=== PATIENT | male | born 1940 | race Caucasian/White ===

== ENCOUNTER 2017-04-17 13:20 | Emergency (ER) | payer BC ==
[~2017-04-17] VITALS: Ht 180.3 cm; Wt 85.0 kg
[2017-04-17 13:22] VITALS: BP 192/90; PULSE 93; RESP 16; TEMP 98; O2SAT 99
[2017-04-17] MEDS ORDERED: LUMI0.01 EACH EYE (13:44)
[2017-04-17] MEDS ORDERED: COMB0.2S EACH EYE (13:44)
[2017-04-17] MEDS ORDERED: QUIN5TAB6 PO (13:44)
[2017-04-17] MEDS ORDERED: METF500T PO (13:44)
[2017-04-17] MEDS ORDERED: GLIM1TAB PO (13:44)
[2017-04-17] MEDS ORDERED: TETANUS/DIPHTHERIA TOXOID ADULT 0.5 ML VIAL IM ONE (14:30)
--- NOTE | 2017-04-17 14:52 | PD ---
HPI . Fall/head injury Chief Complaint: Fall Time Seen by Provider: 13:38 Travel History International Travel<30 days: No Contact w/Intl Traveler<30days: No Traveled to known affect area: No History of Present Illness HPI 76-year-old male patient presents emergency department for evaluation after bending down at home and losing his balance and falling forward. The patient fell forward he hit the left lateral aspect of the top of his head on a stone wall. Patient denies any loss of consciousness. Patient is on a baby aspirin a day. Patient has approximately a 6 cm laceration to the left lateral aspect of his skull. The laceration starts at the hairline and extends posteriorly to the top of the skull. Patient is neurologically intact. The patient also abraded his left elbow during the fall. Patient has a swelling of his left elbow proximal to the abrasion but the patient states that he has had that swelling for years and it does not affect his range of motion. Patient has any chest pain, shortness breath, nausea, vomiting, diarrhea. Patient is unsure of his tetanus is up-to-date. PFSH Past Medical History High Cholesterol: Yes Diabetes: Yes Patient Takes Glucophage: Yes Glaucoma: Yes Hypertension: Yes Tetanus Vaccination: > 5 Years Influenza Vaccination: No Past Surgical History Eye Surgery: Yes (cataracts; glaucoma) Social History Alcohol Use: No Tobacco Use: No Substance Use: No Allergies-Medications (Allergen,Severity, Reaction): Uncoded Allergies: antibiotic (Allergy, Unknown, 04/17/17) Reported Meds & Prescriptions Reported Meds & Active Scripts Active Reported Combigan Opth Drops (Brimonidine-Timolol Opth Drops) 0.2-0.5% Soln 1 Drop EACH EYE Q12HR Lumigan Opth Drops (Bimatoprost) 0.01% Soln 1 Drop EACH EYE HS Quinapril (Quinapril HCl) 5 Mg Tab 5 Mg PO BID Metformin (Metformin HCl) 500 Mg Tab 500 Mg PO BIDPC Glimepiride 1 Mg Tab 1 Mg PO DAILY Take with breakfast or first main meal Review of Systems Except as stated in HPI: all other systems reviewed are Neg Physical Exam Narrative GENERAL: Well-nourished, well-developed 76-year-old male patient in no acute distress. Nontoxic appearing. SKIN: 6 cm laceration to the left lateral aspect of the skull starting at the hairline extending posteriorly towards the occipital portion of the skull. Abrasion to the left elbow. HEAD: Normocephalic. See above skin for noted trauma to the head. No other hematomas or abrasions noted. EYES: No scleral icterus. No injection or drainage. NECK: Supple, trachea midline. No JVD or lymphadenopathy. CARDIOVASCULAR: Regular rate and rhythm without murmurs, gallops, or rubs. RESPIRATORY: Breath sounds equal bilaterally. No accessory muscle use. GASTROINTESTINAL: Abdomen soft, non-tender, nondistended. MUSCULOSKELETAL: Full range of motion noted in all extremities. No obvious deformity, ecchymosis, erythema, cyanosis, or edema. BACK: Nontender without obvious deformity. Full range of motion noted in neck with rotation and extension and flexion. No CVA tenderness. Data Data Last Documented VS Vital Signs Date Time Temp Pulse Resp B/P (MAP) Pulse Ox O2 Delivery O2 Flow Rate FiO2 04/17/17 16:15 78 18 160/77 (104) 99 Room Air 161/77 (105) 04/17/17 13:22 98.0 Orders Orders Tetanus/Diphtheria Tox Adult (Tetanus/Di (04/17/17 14:30) Ct Brain W/O Iv Contrast(Rout) (04/17/17 14:24) Electrocardiogram (04/17/17 14:52) Basic Metabolic Panel (Bmp) (04/17/17 14:52) Ckmb (Isoenzyme) Profile (04/17/17 14:52) Complete Blood Count With Diff (04/17/17 14:52) Magnesium (Mg) (04/17/17 14:52) Prothrombin Time / Inr (Pt) (04/17/17 14:52) Act Partial Throm Time (Ptt) (04/17/17 14:52) Troponin I (04/17/17 14:52) Chest, Single Ap (04/17/17 14:52) Ecg Monitoring (04/17/17 14:52) Bilateral Bp Monitoring (04/17/17 14:52) Iv Access Insert/Monitor (04/17/17 14:52) Oximetry (04/17/17 14:52) Oxygen Administration (04/17/17 14:52) Sodium Chloride 0.9% Flush (Ns Flush) (04/17/17 15:00) Lidocaine 1% Inj (50 Ml) (Xylocaine 1% I (04/17/17 16:15) CKMB (04/17/17 15:55) CKMB% (04/17/17 15:55) Labs Laboratory Tests Test 04/17/17 15:55 White Blood Count 12.1 TH/MM3 Red Blood Count 4.04 MIL/MM3 Hemoglobin 13.0 GM/DL Hematocrit 38.3 % Mean Corpuscular Volume 94.6 FL Mean Corpuscular Hemoglobin 32.0 PG Mean Corpuscular Hemoglobin Concent 33.8 % Red Cell Distribution Width 14.6 % Platelet Count 254 TH/MM3 Mean Platelet Volume 9.1 FL Neutrophils (%) (Auto) 69.9 % Lymphocytes (%) (Auto) 18.0 % Monocytes (%) (Auto) 10.2 % Eosinophils (%) (Auto) 1.1 % Basophils (%) (Auto) 0.8 % Neutrophils # (Auto) 8.4 TH/MM3 Lymphocytes # (Auto) 2.2 TH/MM3 Monocytes # (Auto) 1.2 TH/MM3 Eosinophils # (Auto) 0.1 TH/MM3 Basophils # (Auto) 0.1 TH/MM3 CBC Comment DIFF FINAL Differential Comment Prothrombin Time 11.3 SEC Prothromb Time International Ratio 1.0 RATIO Activated Partial Thromboplast Time 23.9 SEC Blood Urea Nitrogen 28 MG/DL Creatinine 1.29 MG/DL Random Glucose 88 MG/DL Calcium Level 8.9 MG/DL Magnesium Level 1.6 MG/DL Sodium Level 139 MEQ/L Potassium Level 4.0 MEQ/L Chloride Level 105 MEQ/L Carbon Dioxide Level 24.7 MEQ/L Anion Gap 9 MEQ/L Estimat Glomerular Filtration Rate 54 ML/MIN Total Creatine Kinase 122 U/L Creatine Kinase MB 2.3 NG/ML Troponin I LESS THAN 0.02 NG/ML MDM Medical Decision Making Medical Screen Exam Complete: Yes Emergency Medical Condition: Yes Differential Diagnosis Differential diagnoses include but not limited to ICH, concussion, laceration, abrasion, wound, fall, ACS, electrolyte abnormality, vertigo Narrative Course 76-year-old male patient presents emergency department for evaluation after falling forward when he bent down and lost his balance. Patient states that he usually gets dizzy when he leans forward. Patient is on blood pressure medication and correlates the dizziness is blood pressure medication. Due to the patient's age and complaint of dizziness/fall a workup to evaluate cardiac function electrolyte status was initiated. CT of the head was ordered. Laceration was repaired with edmond. Please see my procedural narrative. EKG shows sinus rhythm with heart rate 78. No electrolyte abnormalities noted. CT shows no acute intercranial abnormality. Patient is discharged home with instructions to keep wound clean and dry and get the edmond removed in 10-14 days. Laboratory Tests Test 04/17/17 15:55 White Blood Count 12.1 TH/MM3 Red Blood Count 4.04 MIL/MM3 Hemoglobin 13.0 GM/DL Hematocrit 38.3 % Mean Corpuscular Volume 94.6 FL Mean Corpuscular Hemoglobin 32.0 PG Mean Corpuscular Hemoglobin Concent 33.8 % Red Cell Distribution Width 14.6 % Platelet Count 254 TH/MM3 Mean Platelet Volume 9.1 FL Neutrophils (%) (Auto) 69.9 % Lymphocytes (%) (Auto) 18.0 % Monocytes (%) (Auto) 10.2 % Eosinophils (%) (Auto) 1.1 % Basophils (%) (Auto) 0.8 % Neutrophils # (Auto) 8.4 TH/MM3 Lymphocytes # (Auto) 2.2 TH/MM3 Monocytes # (Auto) 1.2 TH/MM3 Eosinophils # (Auto) 0.1 TH/MM3 Basophils # (Auto) 0.1 TH/MM3 CBC Comment DIFF FINAL Differential Comment Prothrombin Time 11.3 SEC Prothromb Time International Ratio 1.0 RATIO Activated Partial Thromboplast Time 23.9 SEC Blood Urea Nitrogen 28 MG/DL Creatinine 1.29 MG/DL Random Glucose 88 MG/DL Calcium Level 8.9 MG/DL Magnesium Level 1.6 MG/DL Sodium Level 139 MEQ/L Potassium Level 4.0 MEQ/L Chloride Level 105 MEQ/L Carbon Dioxide Level 24.7 MEQ/L Anion Gap 9 MEQ/L Estimat Glomerular Filtration Rate 54 ML/MIN Total Creatine Kinase 122 U/L Creatine Kinase MB 2.3 NG/ML Troponin I LESS THAN 0.02 NG/ML Last Impressions Chest X-Ray 04/17/17 1452 Signed Impressions: Service Date/Time: Monday, April 17, 2017 15:00 - CONCLUSION: 1. Minimal linear atelectatic changes laterally in the left base. No confluent infiltrate. 2. Mild levoscoliosis of the dorsal spine associated mild degenerative changes. No fracture. Ludin Parrish MD Head CT 04/17/17 1424 Signed Impressions: Service Date/Time: Monday, April 17, 2017 15:40 - CONCLUSION: Left frontal scalp soft tissue swelling and laceration. However, no fracture or acute intracranial abnormality is identified. Brian Hardy MD Diagnosis Primary Impression: Fall Qualified Codes: W19.XXXA - Unspecified fall, initial encounter Additional Impression: Laceration of scalp Qualified Codes: S01.01XA - Laceration without foreign body of scalp, initial encounter Referrals: Primary Care Physician Patient Instructions: Fall Prevention for Older Adults (DC), General Instructions, Laceration (ED), Staple Care (ED) Additional Instructions: Please return to emergency department if your symptoms return or worsen. Follow up with your primary care provider. Get edmond removed in 10-14 days. Keep wound clean and dry. May take shower and wash her just past the wound dry afterwards. May apply antibiotic ointment to area. May take [id number] ibuprofen or Tylenol as needed for pain or fevers. May use ice pack to area to alleviate swelling. Med/Other Pt SpecificInfo: Wound Care Disposition: 01 DISCHARGE HOME Condition: Stable AmadouChantell Nicole RUIZ Apr 17, 2017 14:52
[2017-04-17] MEDS ORDERED: SODIUM CHLORIDE 0.9% FLUSH 10 ML FLUSH IVF PRN (15:00)
--- NOTE | 2017-04-17 15:48 | RADRPT ---
EXAM DATE/TIME: 04/17/2017 15:00 [facility] COMPARISON: No previous studies available for comparison. INDICATIONS : Fell today. Chest pain. MEDICAL HISTORY : Hypertension. Diabetes mellitus type II. SURGICAL HISTORY : None. ENCOUNTER: Initial ACUITY: 1 day PAIN SCORE: 10 LOCATION: Right lower chest FINDINGS: A single view of the chest demonstrates the lungs to be symmetrically aerated with minimal linear ate lectatic changes laterally above the left hemidiaphragm. Lungs are otherwise clear. Heart size is nor mal. Levoscoliosis of the dorsal spine with associated mild degenerative changes. Osseous structures are otherwise intact. CONCLUSION: 1. Minimal linear atelectatic changes laterally in the left base. No confluent infiltrate. 2. Mild levoscoliosis of the dorsal spine associated mild degenerative changes. No fracture. Ludin Parrish MD on April 17, 2017 at 15:45 Board Certified Radiologist. This report was verified electronically.
[2017-04-17 16:14] VITALS: BP 160/77; PULSE 78; RESP 18; O2SAT 99
--- NOTE | 2017-04-17 16:14 | RADRPT ---
EXAM DATE/TIME: 04/17/2017 15:40 [facility] COMPARISON: No previous studies available for comparison. INDICATIONS : Fell hitting his head on a stone wall. LOC. RADIATION DOSE: 32.94 CTDIvol (mGy) MEDICAL HISTORY : Hypertension. Diabetes SURGICAL HISTORY : ENCOUNTER: Initial ACUITY: 1 day PAIN SCALE: 8/10 LOCATION: frontal head TECHNIQUE: Multiple contiguous axial images were obtained of the head. Using automated exposure control and adj ustment of the mA and/or kV according to patient size, radiation dose was kept as low as reasonably a chievable to obtain optimal diagnostic quality images. DICOM format image data is available electro nically for review and comparison. FINDINGS: CEREBRUM: There is mild generalized atrophy. Ventricles are normal in size given the degree of atrophy. No mid line shift, mass lesion, hemorrhage or acute infarction. No extra-axial fluid collections are seen. POSTERIOR FOSSA: The cerebellum and brainstem demonstrate no acute finding. The 4th ventricle is midline. The cerebe llopontine angle is unremarkable. EXTRACRANIAL: The visualized sinuses are clear. There is a left frontal scalp soft tissue swelling and laceration. SKULL: The calvaria is intact. No evidence of skull fracture. CONCLUSION: Left frontal scalp soft tissue swelling and laceration. However, no fracture or acute intracranial ab normality is identified. Brian Hardy MD on April 17, 2017 at 16:09 Board Certified Radiologist. This report was verified electronically.
[2017-04-17 16:15] VITALS: BP_SYST 160; BP_SYST 161; BP_DIAS 77; PULSE 78; RESP 18; O2SAT 99
[2017-04-17] MEDS ORDERED: LIDOCAINE HCL 1% 50 ML VIAL INFIL ONE (16:15)
[2017-04-17 16:16] LABS: AUTOMATED NEUTROPHIL # 8.4 TH/MM3 (1.8-7.7); BASOPHIL # 0.1 TH/MM3 (0-0.2); BASOPHIL % 0.8 % (0.0-2.0); EOSINOPHIL # 0.1 TH/MM3 (0-0.4); EOSINOPHIL % 1.1 % (0.0-4.0); HEMATOCRIT 38.3 % (39.0-51.0); HEMO FLAGS DIFF FINAL; LYMPHOCYTE # 2.2 TH/MM3 (1.0-4.8); MEAN CELL VOLUME 94.6 FL (80.0-100.0); MEAN CORPUSCULAR HGB CONC 33.8 % (32.0-36.0); MONO % 10.2 % (0.0-8.0); NEUT % 69.9 % (16.0-70.0); PLATELET COUNT 254 TH/MM3 (150-450); RED BLOOD COUNT 4.04 MIL/MM3 (4.50-5.90); RED CELL DISTRIBUTION WIDTH 14.6 % (11.6-17.2); WHITE BLOOD COUNT 12.1 TH/MM3 (4.0-11.0)
[2017-04-17 16:23] LABS: APTT (PATIENT) 23.9 SEC (24.3-30.1); PROTHROMBIN TIME - PATIENT 11.3 SEC (9.8-11.6)
[2017-04-17 16:25] LABS: ANION GAP 9 MEQ/L (5-15); BICARBONATE 24.7 MEQ/L (21.0-32.0); BLOOD UREA NITROGEN 28 MG/DL (7-18); CHLORIDE 105 MEQ/L (98-107); GLOMERULAR FILTRATION RATE 54 ML/MIN (>89); MAGNESIUM 1.6 MG/DL (1.5-2.5); SODIUM (NA) 139 MEQ/L (136-145)
[2017-04-17 16:27] LABS: CREATINE KINASE 122 U/L (39-308)
[2017-04-17 16:39] LABS: CKMB 2.3 NG/ML (0.5-3.6)
--- NOTE | 2017-04-18 19:04 | EKG ---
Date Performed: 04/17/2017 Time Performed: 16:11:45 PTAGE: 76 years EKG: Sinus rhythm MARKED LEFT AXIS DEVIATION PATTERN CONSISTENT WITH PULMONARY DISEASE MODERATE VOLTAGE CRITERIA FOR L VH, CONSIDER NORMAL VARIANT ABNORMAL ECG NO PREVIOUS TRACING DOCTOR: Jake Kovacs Interpretating Date/Time 04/18/2017 19:03:29
== END 2017-04-17 17:45 | disposition home or self-care (01) ==
LOC: NEPD 13:20
DX: S01.01XA Laceration without foreign body of scalp, initial encounter (principal); S50.312A Abrasion of left elbow, initial encounter; E11.9 Type 2 diabetes mellitus without complications; I10 Essential (primary) hypertension; R94.31 Abnormal electrocardiogram [ECG] [EKG]; R07.9 Chest pain, unspecified; W01.0XXA Fall on same level from slipping, tripping and stumbling without subsequent striking against object, initial encounter; Z23 Encounter for immunization; Z79.84 Long term (current) use of oral hypoglycemic drugs; Z79.899 Other long term (current) drug therapy
CPT/HCPCS: 12002; 70450; 71010; 80048; 82550; 82552; 83735; 84484; 85025; 85610; 85730; 90471; 90714; 93005

== ENCOUNTER 2017-04-22 07:19 | Emergency (ER) | payer BC ==
[~2017-04-22] VITALS: Ht 180.3 cm; Wt 85.0 kg
[~2017-04-22 07:19] MED LIST: COMB0.2S EACH EYE; GLIM1TAB PO; LUMI0.01 EACH EYE; METF500T PO; QUIN5TAB6 PO
[2017-04-22 07:29] VITALS: BP 160/72; PULSE 98; RESP 18; O2SAT 98
[2017-04-22] MEDS ORDERED: cholesterol med (07:40)
[2017-04-22] MEDS ORDERED: AZOP1SUS EACH EYE (07:40)
--- NOTE | 2017-04-22 07:54 | PD ---
HPI Chief Complaint: Neuro Symptoms/ Deficits Time Seen by Provider: 07:42 Travel History International Travel<30 days: No Contact w/Intl Traveler<30days: No Traveled to known affect area: No History of Present Illness HPI Patient is a 76-year-old male presents emergency department after an episode of apparent delirium in the middle the night last night. He is also had one a few nights ago. Apparently this is happened several times since he had a fall a few days ago requiring stitches here. When he had edmond placed feels that a CAT scan was had basic lab work all which was reassuring. Patient states he feels fine now. He is coming by his ex- and his daughter who states the symptoms last for about 30 minutes he was combative moving all 4 extremities and had no obvious facial deformity. They're concerned because with the history of the head injury that he might of had a stroke. The patient has not had any fevers dysuria abdominal pain chest pain shortness of breath. He does complain of some mild neck pain. PFSH Past Medical History High Cholesterol: Yes Diabetes: Yes Patient Takes Glucophage: No Glaucoma: Yes Hypertension: Yes Medical other: Yes (CKD) Past Surgical History Eye Surgery: Yes (cataracts; glaucoma) Tonsillectomy: Yes Social History Alcohol Use: No Tobacco Use: No Substance Use: No Allergies-Medications (Allergen,Severity, Reaction): Coded Allergies: Sulfa (Sulfonamide Antibiotics) (Verified Allergy, Unknown, 04/22/17) Uncoded Allergies: antibiotic (Allergy, Unknown, 04/17/17) Reported Meds & Prescriptions Reported Meds & Active Scripts Active Reported [cholesterol med ] Azopt Opth Drops (Brinzolamide) 1% Susp 1 Drop EACH EYE TID Combigan Opth Drops (Brimonidine-Timolol Opth Drops) 0.2-0.5% Soln 1 Drop EACH EYE Q12HR Lumigan Opth Drops (Bimatoprost) 0.01% Soln 1 Drop EACH EYE HS Quinapril (Quinapril HCl) 5 Mg Tab 5 Mg PO BID Metformin (Metformin HCl) 500 Mg Tab 500 Mg PO BIDPC Review of Systems Except as stated in HPI: all other systems reviewed are Neg Physical Exam Narrative GENERAL: Well-developed well-nourished in no obvious distress SKIN: Focused skin assessment warm/dry. HEAD: Atraumatic. Normocephalic. EYES: Pupils equal and round. No scleral icterus. No injection or drainage. ENT: No nasal bleeding or discharge. Mucous membranes pink and moist. NECK: Trachea midline. No JVD. CARDIOVASCULAR: Regular rate and rhythm. No murmur appreciated. RESPIRATORY: No accessory muscle use. Clear to auscultation. Breath sounds equal bilaterally. GASTROINTESTINAL: Abdomen soft, non-tender, nondistended. Hepatic and splenic margins not palpable. MUSCULOSKELETAL: No obvious deformities. No clubbing. No cyanosis. No edema. NEUROLOGICAL: Awake and alert. No obvious cranial nerve deficits. Motor grossly within normal limits. Normal speech. PSYCHIATRIC: Appropriate mood and affect; insight and judgment normal. Data Data Last Documented VS Vital Signs Date Time Temp Pulse Resp B/P (MAP) Pulse Ox O2 Delivery O2 Flow Rate FiO2 04/22/17 13:20 (80) 04/22/17 11:27 97.6 83 18 99 Room Air Orders Orders Electrocardiogram (04/22/17 07:51) Complete Blood Count With Diff (04/22/17 07:51) Comprehensive Metabolic Panel (04/22/17 07:51) Prothrombin Time / Inr (Pt) (04/22/17 07:51) Act Partial Throm Time (Ptt) (04/22/17 07:51) Thyroid Stimulating Hormone (04/22/17 07:51) Urinalysis - C+S If Indicated (04/22/17 07:51) Ct Brain W/O Iv Contrast(Rout) (04/22/17 07:51) Blood Glucose (04/22/17 07:51) Ecg Monitoring (04/22/17 07:51) Iv Access Insert/Monitor (04/22/17 07:51) Oximetry (04/22/17 07:51) Sodium Chloride 0.9% Flush (Ns Flush) (04/22/17 08:00) Ct Cerv Spine W/O Contrast (04/22/17 ) Bedside Glucose GENOVEVA.CSUGAR (04/22/17 11:09) Ed Discharge Order (04/22/17 13:09) Labs Laboratory Tests Test 04/22/17 08:00 04/22/17 10:30 White Blood Count 16.1 TH/MM3 Red Blood Count 4.47 MIL/MM3 Hemoglobin 14.0 GM/DL Hematocrit 42.5 % Mean Corpuscular Volume 95.0 FL Mean Corpuscular Hemoglobin 31.2 PG Mean Corpuscular Hemoglobin Concent 32.9 % Red Cell Distribution Width 14.2 % Platelet Count 361 TH/MM3 Mean Platelet Volume 9.2 FL Neutrophils (%) (Auto) 73.4 % Lymphocytes (%) (Auto) 14.2 % Monocytes (%) (Auto) 10.2 % Eosinophils (%) (Auto) 1.7 % Basophils (%) (Auto) 0.5 % Neutrophils # (Auto) 11.8 TH/MM3 Lymphocytes # (Auto) 2.3 TH/MM3 Monocytes # (Auto) 1.6 TH/MM3 Eosinophils # (Auto) 0.3 TH/MM3 Basophils # (Auto) 0.1 TH/MM3 CBC Comment DIFF FINAL Differential Comment Prothrombin Time 10.5 SEC Prothromb Time International Ratio 1.0 RATIO Activated Partial Thromboplast Time 26.7 SEC Blood Urea Nitrogen 31 MG/DL Creatinine 1.37 MG/DL Random Glucose 47 MG/DL Total Protein 8.5 GM/DL Albumin 3.9 GM/DL Calcium Level 9.2 MG/DL Alkaline Phosphatase 125 U/L Aspartate Amino Transf (AST/SGOT) 18 U/L Alanine Aminotransferase (ALT/SGPT) 18 U/L Total Bilirubin 0.6 MG/DL Sodium Level 137 MEQ/L Potassium Level 4.0 MEQ/L Chloride Level 101 MEQ/L Carbon Dioxide Level 26.5 MEQ/L Anion Gap 10 MEQ/L Estimat Glomerular Filtration Rate 51 ML/MIN Thyroid Stimulating Hormone 3rd Gen 1.160 uIU/ML Urine Color YELLOW Urine Turbidity CLEAR Urine pH 5.0 Urine Specific [place] 1.014 Urine Protein NEG mg/dL Urine Glucose (UA) NEG mg/dL Urine Ketones NEG mg/dL Urine Occult Blood NEG Urine Nitrite NEG Urine Bilirubin NEG Urine Urobilinogen LESS THAN 2.0 MG/DL Urine Leukocyte Esterase NEG Urine RBC 0-1 /hpf Urine WBC 0-2 /hpf Urine Squamous Epithelial Cells 0-5 /hpf Microscopic Urinalysis Comment CATH-CULT NOT IND MDM Medical Decision Making Medical Screen Exam Complete: Yes Emergency Medical Condition: Yes Differential Diagnosis Hypoglycemia, acute stroke unlikely, subacute intracranial hemorrhage, concussion. Narrative Course Patient roomed in emergency department, found to be hypoglycemic tolerated oral glucose load. Was observed in the emergency department 6 hours well workup was completed including CT head and neck C-spine basic labs. All of which were reassuring. Patient was offered admission for hypoglycemia while on oral hypoglycemics but he would rather go home. I think is reasonable discussed he needs to discontinue his glimepiride until he discussed with his regular physician as this is clearly causing his blood sugar to go to low and likely the cause of his delirium in the middle the night. Discussed with his ex- and his daughter who accompany him. He is stable for discharge. Diagnosis Primary Impression: Delirium due to another medical condition Additional Impression: Hypoglycemia Med/Other Pt SpecificInfo: Prescription(s) given Disposition: 01 DISCHARGE HOME Condition: Stable Hector Lewis MD Apr 22, 2017 07:53
[2017-04-22] MEDS ORDERED: SODIUM CHLORIDE 0.9% FLUSH 5 ML FLUSH IV FLUSH PRN (08:00)
[2017-04-22 08:07] VITALS: BP 137/64; PULSE 87; RESP 18; O2SAT 99
[2017-04-22 08:31] LABS: AUTOMATED NEUTROPHIL # 11.8 TH/MM3 (1.8-7.7); BASOPHIL # 0.1 TH/MM3 (0-0.2); BASOPHIL % 0.5 % (0.0-2.0); EOSINOPHIL # 0.3 TH/MM3 (0-0.4); EOSINOPHIL % 1.7 % (0.0-4.0); HEMATOCRIT 42.5 % (39.0-51.0); HEMO FLAGS DIFF FINAL; LYMPH % 14.2 % (9.0-44.0); LYMPHOCYTE # 2.3 TH/MM3 (1.0-4.8); MEAN CORPUSCULAR HEMOGLOBIN 31.2 PG (27.0-34.0); MEAN CORPUSCULAR HGB CONC 32.9 % (32.0-36.0); MONO % 10.2 % (0.0-8.0); NEUT % 73.4 % (16.0-70.0); PLATELET COUNT 361 TH/MM3 (150-450); RED BLOOD COUNT 4.47 MIL/MM3 (4.50-5.90); RED CELL DISTRIBUTION WIDTH 14.2 % (11.6-17.2); WHITE BLOOD COUNT 16.1 TH/MM3 (4.0-11.0)
[2017-04-22 08:41] LABS: APTT (PATIENT) 26.7 SEC (24.3-30.1); PROTHROMBIN TIME - PATIENT 10.5 SEC (9.8-11.6)
--- NOTE | 2017-04-22 08:53 | RADRPT ---
EXAM DATE/TIME: 04/22/2017 08:34 [facility] COMPARISON: No previous studies available for comparison. INDICATIONS : Altered mental status, recent fall. RADIATION DOSE: 56.35 CTDIvol (mGy) MEDICAL HISTORY : Hypertension. Renal failure, chronic. SURGICAL HISTORY : Tonsillectomy. ENCOUNTER: Initial ACUITY: 1 day PAIN SCALE: Non-responsive LOCATION: cranial TECHNIQUE: Multiple contiguous axial images were obtained of the head. Using automated exposure control and adj ustment of the mA and/or kV according to patient size, radiation dose was kept as low as reasonably a chievable to obtain optimal diagnostic quality images. DICOM format image data is available electro nically for review and comparison. FINDINGS: CEREBRUM: Cerebral atrophy. Chronic ischemic changes adjacent to the right frontal horn. The ventricles are nor mal for age. No evidence of midline shift, mass lesion, hemorrhage or acute infarction. No extra-ax ial fluid collections are seen. POSTERIOR FOSSA: The cerebellum and brainstem are intact. The 4th ventricle is midline. The cerebellopontine angle i s unremarkable. EXTRACRANIAL: The visualized portion of the orbits is intact. Surgical edmond along the left frontal scalp with ad jacent soft tissue hematoma. SKULL: The calvaria is intact. No evidence of skull fracture. CONCLUSION: 1. Cerebral atrophy and chronic ischemic changes. 2. No hemorrhage seen. Gonzales Gilmore MD on April 22, 2017 at 8:50 Board Certified Radiologist. This report was verified electronically.
[2017-04-22 08:58] LABS: ALKALINE PHOSPHATASE 125 U/L (45-117); ALT (GPT) 18 U/L (12-78); ANION GAP 10 MEQ/L (5-15); AST (GOT) 18 U/L (15-37); BICARBONATE 26.5 MEQ/L (21.0-32.0); BLOOD UREA NITROGEN 31 MG/DL (7-18); CHLORIDE 101 MEQ/L (98-107); GLOMERULAR FILTRATION RATE 51 ML/MIN (>89); SODIUM (NA) 137 MEQ/L (136-145); TOTAL BILIRUBIN ADULT 0.6 MG/DL (0.2-1.0)
--- NOTE | 2017-04-22 09:30 | RADRPT ---
EXAM DATE/TIME: 04/22/2017 08:36 [facility] COMPARISON: No previous studies available for comparison. INDICATIONS : Altered mental status, recent fall. RADIATION DOSE: 34.30 CTDIvol (mGy) MEDICAL HISTORY : Hypertension. Renal failure, chronic. SURGICAL HISTORY : Tonsillectomy. ENCOUNTER: Initial ACUITY: 1 day PAIN SCALE: Non-responsive LOCATION: neck TECHNIQUE: Volumetric scanning of the cervical spine was performed. Multiplanar reconstructions in the sagittal, coronal and oblique axial planes were performed. Using automated exposure control and adjustment o f the mA and/or kV according to patient size, radiation dose was kept as low as reasonably achievable to obtain optimal diagnostic quality images. DICOM format image data is available electronically f or review and comparison. FINDINGS: VERTEBRAE: Normal vertebral body height. ALIGNMENT: Minimal anterolisthesis C4 on 5 and minimal retrolisthesis C6 on 7. Degenerative changes C5-C7.. C2-C3: The bony spinal canal is normal in size. No evidence of disc bulge or herniation. The neural forami na are bilaterally patent. C3-C4: The bony spinal canal is normal in size. No evidence of disc bulge or herniation. The neural forami na are bilaterally patent. C4-C5: The bony spinal canal is normal in size. No evidence of disc bulge or herniation. The neural forami na are bilaterally patent. C5-C6: Posterior disc osteophyte complex without canal stenosis.. Moderate left and mild right neural fronta l encroachment. C6-C7: Posterior disc osteophyte complex with mild stenosis. Moderate left and mild right neural foraminal e ncroachment. C7-T1: The bony spinal canal is normal in size. No evidence of disc bulge or herniation. The neural forami na are bilaterally patent. CONCLUSION: 1. No fracture or subluxation. 2. Degenerative changes. Gonzales Gilmore MD on April 22, 2017 at 9:27 Board Certified Radiologist. This report was verified electronically.
[2017-04-22 10:48] LABS: BLOOD, URINE NEG (NEG); GLUCOSE,URINE NEG (NEG); KETONE, URINE NEG (NEG); NITRITE,URINE NEG (NEG); URINE COLOR YELLOW (YELLW/STRAW)
[2017-04-22 11:04] LABS: COMMENT (UR) CATH-CULT NOT IND; CULTURE IF INDICATED CATH CULTURE NOT IND; RBC, URINE 0-1 /hpf (0-3); SQUAMOUS EPITHELIAL CELL URINE 0-5 /hpf (0-5); WBC, URINE 0-2 /hpf (0-5)
[2017-04-22 11:27] VITALS: BP 118/61; PULSE 83; RESP 18; TEMP 97.6; O2SAT 99
--- NOTE | 2017-04-22 18:22 | EKG ---
Date Performed: 04/22/2017 Time Performed: 08:03:56 PTAGE: 76 years EKG: Sinus rhythm MARKED LEFT AXIS DEVIATION PATTERN CONSISTENT WITH PULMONARY DISEASE VOLTAGE CRITERIA FOR LVH NONSPE CIFIC T-WAVE ABNORMALITY ABNORMAL ECG Since PREVIOUS TRACING , no significant change noted PREVIOUS TRACIN04/17/2017 16.11 DOCTOR: Luisito Barney Interpretating Date/Time 04/22/2017 18:20:41
== END 2017-04-22 13:21 | disposition home or self-care (01) ==
LOC: NEPE 07:19
DX: F05 Delirium due to known physiological condition (principal); E11.649 Type 2 diabetes mellitus with hypoglycemia without coma; E11.22 Type 2 diabetes mellitus with diabetic chronic kidney disease; I12.9 Hypertensive chronic kidney disease with stage 1 through stage 4 chronic kidney disease, or unspecified chronic kidney disease; N18.9 Chronic kidney disease, unspecified; Z79.84 Long term (current) use of oral hypoglycemic drugs
CPT/HCPCS: 70450; 72125; 80053; 81001; 84443; 85025; 85610; 85730; 93005; 99285